=== PATIENT | female | born 1965 | race Caucasian/White ===

== ENCOUNTER → 2016-11-04 | Outpatient (CLI) | payer BC ==
--- NOTE | 2016-11-04 08:02 | MR ---
EXAMINATION TYPE: MR shoulder LT wo con DATE OF EXAM: 11/04/2016 COMPARISON: Outside radiographs 10/27/2016 HISTORY: 51-year-old female with left shoulder pain TECHNIQUE: Multiplanar, multisequence imaging of the left shoulder is performed without contrast. FINDINGS: The intracapsular portion of the long head biceps tendon shows intermediate signal suggesting tendino sis. Mild heterogeneity of the subscapularis tendon which remains intact. Mild degenerative capsular hypertrophy at the clavicular joint. Both supraspinatus and infraspinatus tendons are intact though there is a 7 x 9 mm hypointense ovoid focus centered within the anterior supraspinatus tendon fibers just bulging into the overlying subdel toid bursa. There is mild heterogeneous signal of the supraspinatus tendon and thickening of the over lying bursa with trace fluid. No atrophy of the rotator cuff musculature. Evaluation of the glenohumeral joint shows physiologic joint fluid. Some linear signal undercutting t he labral chondral junction behind the biceps anchor is suspected to represent a sublabral recess rat her than labral tear. No para labral cyst. No Hill-Sachs deformity or os acromiale. No suspicious bone marrow replacement. IMPRESSION: 1. 9 mm calcification at the anterior supraspinatus tendon suggests calcific tendinitis. Correlate wi th appropriate patient history. There is mild surrounding inflammation and secondary mild bursitis. 2. No rotator cuff tendon tear. 3. Intracapsular long head biceps tendinosis.
== END | disposition home or self-care (01) ==
LOC: RADMRIMAIN 06:05
PROVIDERS: ATTEND Orthopaedic Surgery
DX: M75.52 Bursitis of left shoulder (principal); M75.22 Bicipital tendinitis, left shoulder; M62.89 Other specified disorders of muscle

== ENCOUNTER → 2017-01-17 | Outpatient (CLI) | payer BC ==
--- NOTE | 2017-01-18 08:51 | XR ---
EXAM TYPE: LUMBAR SPINE X RAY SERIES COMPARISON: NONE HISTORY: Lower back pain TECHNIQUE: 4 views are submitted. FINDINGS: Alignment is anatomic. The pedicles are intact. The transverse processes are intact. There is no s pondylolysis or spondylolisthesis. IMPRESSION: 1. No acute process. If symptoms persist consider MRI.
== END | disposition home or self-care (01) ==
LOC: RADXRYALE 15:05
PROVIDERS: ATTEND Internal Medicine
DX: M54.32 Sciatica, left side (principal)
CPT/HCPCS: 72110

== ENCOUNTER → 2017-05-25 | Outpatient (CLI) | payer BC ==
--- NOTE | 2017-05-25 12:23 | EST ---
EXERCISE STRESS DATE OF SERVICE: 05/25/2017 AGE: 51 SEX: Female HT: WT: 106 PROTOCOL: Lenin STAGE: II DURATION OF EXERCISE: 8 minutes HEART RATE REST: 81 BLOOD PRESSURE REST: 182/93 MAXIMUM HEART RATE ACHIEVED: 145 MAXIMUM BLOOD PRESSURE: 215/64 85% MPHR: 145 100% MPHR: 170 METS: 9.7 INDICATIONS: Chest pain. CLINICAL INFORMATION: Patient referred by Dr. Carlson for a stress test history for history of chest pain. Baseline heart rate 81 beats per minute. Baseline blood pressure 182/93 mmHg. Baseline 12-lead ECG shows normal sinus rhythm with normal cardiac intervals. Patient exercised on a Lenin protocol for 8 minutes achieving a peak heart rate of 145 beats per minute, hypertensive response to exercise. There was no obvious ECG evidence for ischemia. No arrhythmias were noted. IMPRESSION: Average exercise capacity. No ECG evidence for ischemia or arrhythmia. Baseline hypertension with hypertensive response to exercise. MMODL / IJN: [id number] /
--- NOTE | 2017-05-26 11:36 | ECHOF ---
Referral Reason:R07.89 Chest Tightness or Pressure MEASUREMENTS -------- HEIGHT: 165.1 cm WEIGHT: 45.4 kg BP: 190/92 RVIDd: 2.1 cm (< 3.3) IVSd: 0.8 cm (0.6 - 1.1) LVIDd: 3.8 cm (3.9 - 5.3) LVPWd: 0.9 cm (0.6 - 1.1) IVSs: 1.2 cm LVIDs: 2.6 cm LVPWs: 1.3 cm LAESV Index (A-L): 23.08 ml/m Ao Diam: 2.3 cm (2.0 - 3.7) AV Cusp: 1.7 cm (1.5 - 2.6) LA Diam: 2.3 cm (2.7 - 3.8) EPSS: 0.5 cm MV E Skyler: 0.90 m/s MV DecT: 278 ms MV A Skyler: 0.72 m/s MV E/A Ratio: 1.25 RAP: 5.00 mmHg RVSP: 13.88 mmHg MV EF SLOPE: 134.43 mm/s (70 - 150) MV EXCURSION: 1.87 cm (> 18.000) FINDINGS -------- Sinus rhythm. This was a technically good study. The left ventricular size is normal. Left ventricular wall thickness is normal. Overall left vent ricular systolic function is normal with, an EF between 55 - 60 %. The right ventricle is normal in size and function. Normal LA size by volume 22+/-6 ml/m2. The right atrium is normal in size. Aortic valve is trileaflet and is mildly thickened. Trace amount of aortic regurgitation. There is no evidence of aortic stenosis. The mitral valve leaflets are mildly thickened. There is trace to mild mitral regurgitation. Trace tricuspid regurgitation present. Right ventricular systolic pressure is normal at < 35 mmHg. There is no evidence of pulmonary hypertension. The pulmonic valve was not well visualized. The aortic root size is normal. Normal inferior vena cava with normal inspiratory collapse consistent with estimated right atrial pre ssure of 5 mmHg. There is no pericardial effusion. CONCLUSIONS -------- 1. Sinus rhythm. 2. This was a technically good study. 3. The left ventricular size is normal. 4. Left ventricular wall thickness is normal. 5. Overall left ventricular systolic function is normal with, an EF between 55 - 60 %. 6. Normal LA size by volume 22+/-6 ml/m2. 7. Aortic valve is trileaflet and is mildly thickened. 8. Trace amount of aortic regurgitation. 9. The mitral valve leaflets are mildly thickened. 10. There is trace to mild mitral regurgitation. 11. Trace tricuspid regurgitation present. 12. Right ventricular systolic pressure is normal at < 35 mmHg. 13. There is no evidence of pulmonary hypertension. 14. The pulmonic valve was not well visualized. 15. The aortic root size is normal. 16. There is no pericardial effusion. POCKET SETTER LOCKSTITCH: Vinay Lozada RDCS
== END | disposition home or self-care (01) ==
LOC: RADNMMAIN 10:52
PROVIDERS: ATTEND Internal Medicine
DX: I35.8 Other nonrheumatic aortic valve disorders (principal)
CPT/HCPCS: 93017; 93306

== ENCOUNTER → 2019-03-21 | Outpatient (CLI) | payer BC ==
--- NOTE | 2019-03-21 14:37 | XR ---
EXAMINATION TYPE: XR chest 2V DATE OF EXAM: 03/21/2019 COMPARISON: Prior chest x-ray 08/14/[address] 11/24/2012 HISTORY: Bronchospasm, cough and congestion TECHNIQUE: Frontal and lateral views of the chest are obtained. FINDINGS: There are prominent lung volumes with flattening the hemidiaphragms consistent with underly ing COPD. There is increased retrosternal airspace. There is no focal air space opacity, pleural effu linh, or pneumothorax seen. The cardiac silhouette size is small. Aorta is dense. Biapical pleural thickening is stable. The osseous structures are intact. IMPRESSION: No acute cardiopulmonary process.
== END | disposition home or self-care (01) ==
LOC: RADXRYALE 10:43
PROVIDERS: ATTEND Internal Medicine
DX: J98.01 Acute bronchospasm (principal)
CPT/HCPCS: 71046

== ENCOUNTER → 2019-10-19 | Outpatient (CLI) | payer BC ==
--- NOTE | 2019-10-19 15:33 | XR ---
EXAMINATION TYPE: XR chest 2V DATE OF EXAM: 10/19/2019 CLINICAL HISTORY: Bronchitis. Cough with shortness of breath. Smoker. TECHNIQUE: Frontal and lateral views of the chest are obtained. COMPARISON: 03/21/2019 chest radiograph FINDINGS: The lungs are hyperexpanded. The cardiomediastinal silhouette is within normal limits for size. Pulmonary vasculature is normal. Apical pleural thickening redemonstrated. There is no focal ai r space opacity, pleural effusion, or pneumothorax seen. The osseous structures are intact. IMPRESSION: No acute cardiopulmonary process.
== END | disposition home or self-care (01) ==
LOC: RADXRYALE 13:08
PROVIDERS: ATTEND Internal Medicine
DX: J20.9 Acute bronchitis, unspecified (principal)
CPT/HCPCS: 71046

== ENCOUNTER 2019-11-04 08:48 | Observation (INO) | payer BC ==
[2019-11-04] MEDS ORDERED: LORazepam 2 MG/ML INJ IV STA (09:08)
[2019-11-04] MEDS ORDERED: SODIUM CHLORIDE 0.9% 500 ML 500 ML IV STA (09:08)
--- NOTE | 2019-11-04 09:12 | ED ---
General Adult HPI - General Chief complaint: Chest Pain Stated complaint: Rib & back pain Time Seen by Provider: 11/04/19 08:50 Source: patient, RN notes reviewed, old records reviewed Mode of arrival: ambulatory Limitations: no limitations - History of Present Illness Initial comments: This a 54-year-old female who presents emergency Department complaining of left- sided rib pain over the last 5 days. Patient states it's intermittent and nothing she seems to do makes it better or makes it go away. Patient states he just incident seems to be getting progressively worse. Patient states she's also had a 12 pound weight loss the last couple of months. Patient states she seen her primary medical care doctor and she has suggested that she get a CAT scan of her chest. Patient denies any fever chills or cough per patient denies any shortness of breath. She states when the pain is there is very difficult to take a deep breath but she is not short of breath. Patient states she continues to smoke but is trying to quit. Patient is very anxious because she is worried about the pain in all of her smoking history. Patient denies any diaphoretic episodes. Patient has any abdominal pain patient denies nausea vomiting diarrhea. - Related Data Home Medications Medication Instructions Recorded Confirmed Levothyroxine Sodium [Synthroid] 50 mcg PO DAILY 11/04/19 11/04/19 Allergies Allergy/AdvReac Type Severity Reaction Status Date / Time No Known Allergies Allergy Verified 11/04/19 10:41 Review of Systems ROS Statement: Those systems with pertinent positive or pertinent negative responses have been documented in the HPI. ROS Other: All systems not noted in ROS Statement are negative. Past Medical History Past Medical History: Hypertension, Thyroid Disorder History of Any Multi-Drug Resistant Organisms: None Reported Past Surgical History: Tubal Ligation Past Psychological History: No Psychological Hx Reported Smoking Status: Current every day smoker Past Alcohol Use History: Daily Past Drug Use History: Marijuana General Exam - General Exam Comments Initial Comments: GENERAL: Patient is well-developed and well-nourished. Patient is nontoxic and well- hydrated and is in mild distress. ENT: Neck is soft and supple. No significant lymphadenopathy is noted. Oropharynx is clear. Moist mucous membranes. Neck has full range of motion without eliciting any pain. EYES: The sclera were anicteric and conjunctiva were pink and moist. Extraocular movements were intact and pupils were equal round and reactive to light. Eyelids were unremarkable. PULMONARY: Unlabored respirations. Good breath sounds bilaterally. No audible rales rhonchi or wheezing was noted. CARDIOVASCULAR: There is a regular rate and rhythm without any murmurs gallops or rubs. Pain in the ribs is not reproducible with palpation or with movement of the patient or her taking a deep breath. ABDOMEN: Soft and nontender with normal bowel sounds. SKIN: Skin is clear with no lesions or rashes and otherwise unremarkable. NEUROLOGIC: Patient is alert and oriented x3. Cranial nerves II through XII are grossly intact. Motor and sensory are also intact. Normal speech, volume and content. Symmetrical smile. MUSCULOSKELETAL: Normal extremities with adequate strength and full range of motion. No lower extremity swelling or edema. No calf tenderness. LYMPHATICS: No significant lymphadenopathy is noted PSYCHIATRIC: Normal psychiatric evaluation. Limitations: no limitations Course Vital Signs 11/04/19 11/04/19 11/04/19 08:50 09:30 11:00 Temperature 98.1 F Pulse Rate 114 H 85 76 Respiratory 18 20 19 Rate Blood Pressure 186/103 144/96 100/66 O2 Sat by Pulse 98 98 95 Oximetry Medical Decision Making - Medical Decision Making EKG shows normal sinus rhythm at 90 bpm MA interval 236 QRS is under 6 QT interval 366 QTC is 447. Patient's EKG shows no ST segment elevation or depression. Patient had a computed tomography scan it showed pneumonia in the left lower lung and a right apical mass possible cancer. Prior to this there was no known site of infection. I started the patient on Rocephin 2 blood cultures and lactic acid. - Lab Data Result diagrams: 11/04/19 09:10 11/04/19 09:10 Lab Results 11/04/19 11/04/19 11/04/19 Range/Units 09:10 09:10 09:10 WBC 8.2 (3.8-10.6) k/uL RBC 4.48 (3.80-5.40) m/uL Hgb 14.0 (11.4-16.0) gm/dL Hct 42.4 (34.0-46.0) % MCV 94.6 (80.0-100.0) fL MCH 31.2 (25.0-35.0) pg MCHC 33.0 (31.0-37.0) g/dL RDW 12.4 (11.5-15.5) % Plt Count 391 (150-450) k/uL Neutrophils % 76 % Lymphocytes % 13 % Monocytes % 7 % Eosinophils % 2 % Basophils % 1 % Neutrophils # 6.3 (1.3-7.7) k/uL Lymphocytes # 1.0 (1.0-4.8) k/uL Monocytes # 0.6 (0-1.0) k/uL Eosinophils # 0.2 (0-0.7) k/uL Basophils # 0.1 (0-0.2) k/uL PT 9.3 (9.0-12.0) sec INR 0.9 (<1.2) APTT 23.2 (22.0-30.0) sec D-Dimer 0.66 H (<0.60) mg/L FEU Sodium 137 (137-145) mmol/L Potassium 3.8 (3.5-5.1) mmol/L Chloride 104 (98-107) mmol/L Carbon Dioxide 24 (22-30) mmol/L Anion Gap 9 mmol/L BUN 10 (7-17) mg/dL Creatinine 0.47 L (0.52-1.04) mg/dL Est GFR (CKD-EPI)AfAm >90 (>60 ml/min/1.73 sqM) Est GFR (CKD-EPI)NonAf >90 (>60 ml/min/1.73 sqM) Glucose 117 H (74-99) mg/dL Calcium 9.7 (8.4-10.2) mg/dL Magnesium 1.9 (1.6-2.3) mg/dL Total Bilirubin 0.9 (0.2-1.3) mg/dL AST 21 (14-36) U/L ALT 16 (4-34) U/L Alkaline Phosphatase 90 (38-126) U/L Troponin I (0.000-0.034) ng/mL Total Protein 7.1 (6.3-8.2) g/dL Albumin 4.1 (3.5-5.0) g/dL 11/04/19 Range/Units 09:10 WBC (3.8-10.6) k/uL RBC (3.80-5.40) m/uL Hgb (11.4-16.0) gm/dL Hct (34.0-46.0) % MCV (80.0-100.0) fL MCH (25.0-35.0) pg MCHC (31.0-37.0) g/dL RDW (11.5-15.5) % Plt Count (150-450) k/uL Neutrophils % % Lymphocytes % % Monocytes % % Eosinophils % % Basophils % % Neutrophils # (1.3-7.7) k/uL Lymphocytes # (1.0-4.8) k/uL Monocytes # (0-1.0) k/uL Eosinophils # (0-0.7) k/uL Basophils # (0-0.2) k/uL PT (9.0-12.0) sec INR (<1.2) APTT (22.0-30.0) sec D-Dimer (<0.60) mg/L FEU Sodium (137-145) mmol/L Potassium (3.5-5.1) mmol/L Chloride (98-107) mmol/L Carbon Dioxide (22-30) mmol/L Anion Gap mmol/L BUN (7-17) mg/dL Creatinine (0.52-1.04) mg/dL Est GFR (CKD-EPI)AfAm (>60 ml/min/1.73 sqM) Est GFR (CKD-EPI)NonAf (>60 ml/min/1.73 sqM) Glucose (74-99) mg/dL Calcium (8.4-10.2) mg/dL Magnesium (1.6-2.3) mg/dL Total Bilirubin (0.2-1.3) mg/dL AST (14-36) U/L ALT (4-34) U/L Alkaline Phosphatase (38-126) U/L Troponin I <0.012 (0.000-0.034) ng/mL Total Protein (6.3-8.2) g/dL Albumin (3.5-5.0) g/dL Disposition Clinical Impression: Pneumonia, Lung mass Disposition: ADMITTED IP TO THIS HOSP Referrals: Evelyn Carlson MD [Primary Care Provider] - 1-2 days Time of Disposition: 11:15
[2019-11-04 09:24] LABS: Basophils # (A) 0.1 k/uL (0-0.2); Basophils % (A) 1 %; Eosinophils # (A) 0.2 k/uL (0-0.7); Eosinophils % (A) 2 %; HCT 42.4 % (34.0-46.0); Lymphocytes % (A) 13 %; MCH 31.2 pg (25.0-35.0); MCV 94.6 fL (80.0-100.0); Monocytes # (A) 0.6 k/uL (0-1.0); Monocytes % (A) 7 %; Neutrophils # (A) 6.3 k/uL (1.3-7.7); Neutrophils % (A) 76 %; Platelet Count 391 k/uL (150-450); RBC 4.48 m/uL (3.80-5.40); RDW 12.4 % (11.5-15.5); WBC 8.2 k/uL (3.8-10.6)
[2019-11-04 09:37] LABS: INR 0.9 (<1.2); Partial Thromboplastin Time 23.2 sec (22.0-30.0); Prothrombin Time 9.3 sec (9.0-12.0)
[2019-11-04 09:39] LABS: ALT 16 U/L (4-34); AST 21 U/L (14-36); African American GFR (CKD) >90 (>60 ml/min/1.73 sqM); Albumin 4.1 g/dL (3.5-5.0); Alkaline Phosphatase 90 U/L (38-126); Anion Gap 9 mmol/L; Blood Urea Nitrogen 10 mg/dL (7-17); Calcium 9.7 mg/dL (8.4-10.2); Carbon Dioxide 24 mmol/L (22-30); Chloride 104 mmol/L (98-107); Glucose 117 mg/dL (74-99); Magnesium 1.9 mg/dL (1.6-2.3); Non-African American GFR(CKD) >90 (>60 ml/min/1.73 sqM); Potassium 3.8 mmol/L (3.5-5.1); Sodium 137 mmol/L (137-145); Total Bilirubin 0.9 mg/dL (0.2-1.3); Total Protein 7.1 g/dL (6.3-8.2)
[2019-11-04 09:40] LABS: D-Dimer 0.66 mg/L FEU (<0.60)
[2019-11-04] MEDS ORDERED: KETOROLAC 15 MG/ML 1 ML VIAL IVP STA (09:47)
--- NOTE | 2019-11-04 11:11 | CT ---
EXAMINATION TYPE: CT chest angio for PE DATE OF EXAM: 11/04/2019 COMPARISON: 11/24/2012 HISTORY: left side rib pain CT DLP: 329.9 mGycm Automated exposure control for dose reduction was used. CONTRAST: CT Chest for pulmonary embolism performed with with IV Contrast, patient injected with 100 mL of Isov ue 370. FINDINGS: LUNGS: Biapical pleural thickening. There is left lower lobe infiltrate correlate for pneumonia. No p leural effusion. No pneumothorax. MEDIASTINUM: There is satisfactory enhancement of the pulmonary artery and its branches, there is no CT evidence for pulmonary embolism. There are no greater than 1 cm hilar or mediastinal lymph nodes. No pericardial effusion is seen. OTHER: Stable bilateral adrenal gland thickening greater on the left correlate for hyperplasia.. IMPRESSION: 1. Left lower lobe pneumonia. 2. No diagnostic evidence of pulmonary embolism. 3. Right apical pleural thickening is progressed from the prior exam and could be correlated with a short-term follow-up PET scan. There is a somewhat nodular morphology.
[2019-11-04] MEDS ORDERED: cefTRIAXone IN SWFI 1,000 MG/10 ML SYRINGE IVP STA ×2 (11:14→11:18)
[2019-11-04] MEDS ORDERED: PNEUMONIA PROTOCOL UTILIZED 1 EACH MISC PO PRN (11:16)
[2019-11-04] MEDS ORDERED: AZITHROMYCIN 500 MG in SODIUM CHLORIDE 0.9% 250 ML IVPB STA (11:16)
--- NOTE | 2019-11-04 12:08 | P.CNPUL ---
History of Present Illness Consult date: 11/04/19 Reason for consult: pneumonia History of present illness: 54-year-old female patient came into the MRSA problem because of left-sided chest pain a over the past few days. Her pain was progressively getting worse and she is also getting more short of breath. Her pain was intermittent. She has lost around 12 pounds due to diminished appetite. She denies having any fever or chills. She denies having any worsening her cough. Denies having any worsening shortness of breath. She is known to have COPD. She has chronic biapical scarring based on that previous CAT scan of the chest that was done 2012. The patient is a smoker. She is quite anxious. No hemoptysis. Denies any nausea vomiting diarrhea or abdominal pain. She has hypothyroidism and she is maintained on Synthroid. Her white cell count is currently at 8.2. D-dimer was 0.66. Renal function stable with a creatinine of 0.7. Troponins were negative. CAT scan of the chest was done and it showed a left lower lobe pneumonia. There was also right apical pleural thickening that had progressed since 2012. This is slow progression. Probably a scar although the possibility of malignancy being low but cannot be completely excluded. She is currently on a combination of Rocephin and Zithromax. She is currently on room in oxygen and her pulse ox is 95%. No significant tachycardia. She is afebrile.. The patient smokes marijuana on a daily basis. The patient also drinks 3 beers a day. 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 Review of Systems Constitutional: Reports as per HPI, Reports fatigue, Reports weight loss, Denies chills, Denies fever Eyes: denies as per HPI, denies blurred vision, denies bulging eye, denies decreased vision, denies diplopia, denies discharge, denies dry eye, denies irri tation, denies itching, denies pain, denies photophobia, denies loss of peripheral vision, denies loss of vision, denies tunnel vision/blind spots Ears: deny: decreased hearing, ear discharge, earache, tinnitus Ears, nose, mouth and throat: Denies headache, Denies sore throat Breasts: absent: as per HPI, change in shape, gynecomastia, masses, nipple discharge, pain, skin changes, swelling Cardiovascular: Reports chest pain, Reports decreased exercise tolerance Respiratory: Reports as per HPI Gastrointestinal: Reports as per HPI Genitourinary: Reports as per HPI Menstruation: Reports as per HPI Musculoskeletal: Reports as per HPI Musculoskeletal: absent: ankle pain, ankle stiffness, ankle swelling, as per HPI, elbow pain, elbow stiffness, elbow swelling, foot pain, foot stiffness, foot swelling, hand pain, hand stiffness, hand swelling, hip pain, hip stiffness, hip swelling, knee pain, knee stiffness, knee swelling, shoulder pain, shoulder stiffness, shoulder swelling, wrist pain, wrist stiffness, wrist swelling Integumentary: Reports as per HPI Neurological: Reports as per HPI Psychiatric: Reports as per HPI Endocrine: Reports as per HPI Hematologic/Lymphatic: Reports as per HPI Allergic/Immunologic: Reports as per HPI Past Medical History Past Medical History: COPD, Hypertension, Thyroid Disorder History of Any Multi-Drug Resistant Organisms: None Reported Past Surgical History: Tubal Ligation Past Psychological History: No Psychological Hx Reported Smoking Status: Current every day smoker Past Alcohol Use History: Daily Past Drug Use History: Marijuana Medications and Allergies Home Medications Medication Instructions Recorded Confirmed Type Levothyroxine Sodium [Synthroid] 50 mcg PO DAILY 11/04/19 11/04/19 History Allergies Allergy/AdvReac Type Severity Reaction Status Date / Time No Known Allergies Allergy Verified 11/04/19 10:41 Physical Exam Vitals: Vital Signs Temp Pulse Resp BP Pulse Ox 11/04/19 11:00 76 19 100/66 95 11/04/19 09:30 85 20 144/96 98 11/04/19 08:50 98.1 F 114 H 18 186/103 98 Intake and Output 11/03/19 11/04/19 11/04/19 22:59 06:59 14:59 Other: Weight 44.452 kg The patient appeared well nourished and normally developed. Vital signs as documented. Head exam is unremarkable. No scleral icterus or corneal arcus noted. Neck is without jugular venous distension, thyromegaly, or carotid bruits. Carotid upstrokes are brisk bilaterally. Lungs are clear to auscultation and percussion. Cardiac exam reveals the PMI to be normally sized and situated. Rhythm is regular. First and second heart sounds normal. No murmurs, rubs or gallops. Abdominal exam reveals normal bowel sounds, no masses, no organomegaly and no aortic enlargement. Extremities are nonedematous and both femoral and pedal pulses are normal.Examination of the skin revealed no evidence of significant rashes, suspicious appearing nevi or other concerning lesions.Neurologically, the patient is awake and alert and the patient does not have any focal neurological deficit. Cranial nerves are essentially intact. Results - Laboratory Findings CBC and BMP: 11/04/19 09:10 11/04/19 09:10 PT/INR, D-dimer PT 9.3 sec (9.0-12.0) 11/04/19 09:10 INR 0.9 (<1.2) 11/04/19 09:10 D-Dimer 0.66 mg/L FEU (<0.60) H 11/04/19 09:10 Abnormal lab findings: Abnormal Labs 11/04/19 11/04/19 09:10 09:10 D-Dimer 0.66 H Creatinine 0.47 L Glucose 117 H - Diagnostic Findings Chest x-ray: image reviewed CT scan - chest: image reviewed Assessment and Plan Plan: 1 acute left lower lobe pneumonia with secondary chest wall pain 2 COPD 3 chronic biapical scarring with some interval progression since 2012. Most likely a progression of a scar. Malignancy is felt to be less likely 4 chronic smoker 5 hypothyroidism 6 hypertension 7 marijuana smoking Plan Agree on Rocephin and Zithromax Sputum Gram stain and culture Blood cultures Pain control with Tylenol and no cough needed Outpatient follow-up regarding the biapical scar/opacities as mentioned, malignancy is felt to be less likely Smoking cessation counseling Resume Synthroid No significant oxygen desaturation. Hemodynamically stable. We'll continue to follow.
[2019-11-04] MEDS: HYDROcodone/APAP 5-325MG 1 EACH TAB PO PRN ×2 (13:23→22:18)
--- NOTE | 2019-11-04 13:38 | P.HPIM ---
History of Present Illness H&P Date: 11/04/19 Chief Complaint: Left sided chest wall pain Ms. Marcano is a 54-year-old female with a past medical history of COPD, hypertension, thyroid disorder coming in with a chief complaint of left-sided chest pain that has been going on for the past 3-4 days. Patient states that sh e started to notice left-sided chest pain that started 3 days back and was progressively getting worse and along with that she was having cough and difficulty in breathing. Patient also states that over the past 6 months she lost around 10 pounds of weight which was unintentional. Patient states the cough is mostly dry nonproductive. She had an episode of fever with 99.7 recorded at home. Patient is a lifelong smoker and currently is actively smoking. Patient denies having any abdominal pain nausea vomiting or diarrhea. She denies having any palpitations, syncopal episode or lower extremity swelling. No orthopnea or PND. Patient denies having any dysuria or hematuria. She denies having any headaches blurring of vision or neck pain. Patient denies having any recent infections or antibiotic use. In the ER patient had labs done showing an elevated d-dimer of 0.66, so CT angiogram of the chest was obtained which was showing left lower lobe pneumonia, no evidence of PE, right apical pleural the coming progressed from the prior exam and couldn't be correlated with a short-term follow-up PET scan, there is a somewhat nodular morphology. On reviewing her labs her WBC count was 8.2, hemoglobin 14, platelets 391. Sodium of 131 but #3.8, chloride 104, bicarb 24, BUN 10, creatinine 0.47. Patient had troponin less than 0.012. Albumin is 4.1. Lactic acid is less than 0.5. Patient was started on ceftriaxone and Zithromax and admitted for further management. Review of Systems REVIEW OF SYSTEMS: PSYCH: No anxiety or depression NEURO:No c/o weakness of the extremties, No facial droop, No speech abnormalities. VASCULAR: Peripheral nervous system within the normal limits no edema HEMATOLOGIC: No history of easy bleeding and bruising . No recent infections . RESPIRATORY: As per HPI IMMUNE: No infections INTEGUMENT: no rashes OPHTHALMOLOGIC: No blurry vision and no eye discharge : No dysuria or hematuria CARDIAC: No chest pain , shortness of breath , paroxysmal nocturnal dyspnea MUSCULOSKELETAL : No Aches or pains in the joints or muscles. GI: No abdominal pain, Nausea or vomiting. No constipation or diarrhea. Past Medical History Past Medical History: COPD, Hypertension, Thyroid Disorder History of Any Multi-Drug Resistant Organisms: None Reported Past Surgical History: Tubal Ligation Past Psychological History: No Psychological Hx Reported Smoking Status: Current every day smoker Past Alcohol Use History: Daily Past Drug Use History: Marijuana Medications and Allergies Home Medications Medication Instructions Recorded Confirmed Type Levothyroxine Sodium [Synthroid] 50 mcg PO DAILY 11/04/19 11/04/19 History amLODIPine [Norvasc] 5 mg PO DAILY 11/04/19 11/04/19 History Allergies Allergy/AdvReac Type Severity Reaction Status Date / Time No Known Allergies Allergy Verified 11/04/19 10:41 Physical Exam Vitals: Vital Signs Temp Pulse Pulse Resp BP BP Pulse Ox 11/04/19 12:15 98.1 F 76 19 120/83 95 11/04/19 11:28 97.7 F 73 14 121/78 99 11/04/19 11:00 76 19 100/66 95 11/04/19 09:30 85 20 144/96 98 11/04/19 08:50 98.1 F 114 H 18 186/103 98 Intake and Output 11/03/19 11/04/19 11/04/19 22:59 06:59 14:59 Other: Weight 44.452 kg PHYSICAL EXAM GEN. APPEARANCE: alert, in no apparent distress, tearful , cachectic HEAD EXAM: atraumatic, normocephalic, normal inspection EYE EXAM: normal appearance, PERRL, EOMI. Absent: scleral icterus, conjunctival injection, periorbital swelling ENT EXAM: normal exam, mucous membranes moist NECK EXAM: normal inspection. Absent: tenderness, meningismus, full ROM, lymphadenopathy RESPIRATORY EXAM: Bilateral breath sounds are positive. Pleuritic chest pain on the left side. No wheeze or crackles CARDIOVASCULAR EXAM: S1 and S2 heard. No additional sounds. GI/ABDOMINAL EXAM: Abdomen is soft nontender no organomegaly. Bowel sounds are positive. EXTREMITIES EXAM: No pedal edema. Peripheral pulses felt. NEUROLOGICAL EXAM: alert, oriented X3, no focal neurological deficits. PSYCHIATRIC EXAM: Patient is tearful. Not depressed. Worried about her health. SKIN EXAM: warm, dry, intact, normal color. Absent: rash Results CBC & Chem 7: 11/04/19 09:10 11/04/19 09:10 Labs: Abnormal Lab Results - Last 24 Hours (Table) 11/04/19 11/04/19 11/04/19 Range/Units 09:10 09:10 12:07 D-Dimer 0.66 H (<0.60) mg/L FEU Creatinine 0.47 L (0.52-1.04) mg/dL Glucose 117 H (74-99) mg/dL Plasma Lactic Acid Yves <0.5 L (0.7-2.0) mmol/L Thrombosis Risk Factor Assmnt - Choose All That Apply Each Factor Represents 1 point: Age 41-60 years Thrombosis Risk Factor Assessment Total Risk Factor Score: 1 Thrombosis Risk Factor Assessment Level: Low Risk Assessment and Plan Assessment: ASSESSMENT Left lower lobe pneumonia Pleuritic chest pain Hypothyroidism Nicotine dependence Hypertension 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 Patient will be started on her home medications. Pulmonary on board , Dr. Peters following the patient. Further recommendations to follow depending on the progress of the patient.
[2019-11-04] MEDS: LEVOTHYROXINE 50 MCG TAB PO SCH (13:41)
[2019-11-04] MEDS: amLODIPine 5 MG TAB PO SCH (13:41)
[2019-11-05] MEDS: amLODIPine 5 MG TAB PO SCH (07:52)
[2019-11-05] MEDS: LEVOTHYROXINE 50 MCG TAB PO SCH (07:52)
--- NOTE | 2019-11-05 08:51 | P.PN ---
Subjective Progress Note Date: 11/05/19 54-year-old female patient came into the MRSA problem because of left-sided chest pain a over the past few days. Her pain was progressively getting worse and she is also getting more short of breath. Her pain was intermittent. She has lost around 12 pounds due to diminished appetite. She denies having any fever or chills. She denies having any worsening her cough. Denies having any worsening shortness of breath. She is known to have COPD. She has chronic biapical scarring based on that previous CAT scan of the chest that was done 2012. The patient is a smoker. She is quite anxious. No hemoptysis. Denies any nausea vomiting diarrhea or abdominal pain. She has hypothyroidism and she is maintained on Synthroid. Her white cell count is currently at 8.2. D-dimer was 0.66. Renal function stable with a creatinine of 0.7. Troponins were negative. CAT scan of the chest was done and it showed a left lower lobe pneumonia. There was also right apical pleural thickening that had progressed since 2012. This is slow progression. Probably a scar although the possibility of malignancy being low but cannot be completely excluded. She is currently on a combination of Rocephin and Zithromax. She is currently on room in oxygen and her pulse ox is 95%. No significant tachycardia. She is afebrile.. The patient smokes marijuana on a daily basis. The patient also drinks 3 beers a day. 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 Plan 2019 and seeing the patient for a follow-up. The patient's was started on IV antibiotics with a combination of Rocephin and Zithromax regarding a lobar pneumonia. She has also biapical scarring. The patient has remained afebrile throughout the night. He is on room air oxygen. She still having soreness in her chest area. No hemoptysis. The pain is somewhat pleuritic with worsening of the pain with deep breathing. Otherwise, she is now having any nausea or vomiting. She is having her regular diet and she was offered breakfast today. Objective - Vital Signs Vital signs: Vital Signs Temp 97.6 F 11/05/19 03:00 Pulse 77 11/05/19 03:00 Resp 18 11/05/19 03:00 BP 126/65 11/05/19 03:00 Pulse Ox 96 11/05/19 03:00 Intake & Output 11/04/19 11/05/19 11/05/19 18:59 06:59 18:59 Intake Total 100 Balance 100 Weight 44.452 kg Intake: Oral 100 Other: Voiding Method Toilet Toilet # Voids 2 2 - Exam The patient appeared well nourished and normally developed. Vital signs as d ocumented. Head exam is unremarkable. No scleral icterus or corneal arcus noted. Neck is without jugular venous distension, thyromegaly, or carotid bruits. Carotid upstrokes are brisk bilaterally. Lungs are clear to auscultation and percussion. Cardiac exam reveals the PMI to be normally sized and situated. Rhythm is regular. First and second heart sounds normal. No murmurs, rubs or gallops. Abdominal exam reveals normal bowel sounds, no masses, no organomegaly and no aortic enlargement. Extremities are nonedematous and both femoral and pedal pulses are normal.Examination of the skin revealed no evidence of significant rashes, suspicious appearing nevi or other concerning lesions.Neurologically, the patient is awake and alert and the patient does not have any focal neurological deficit. Cranial nerves are essentially intact. - Labs CBC & Chem 7: 11/04/19 09:10 11/04/19 09:10 Labs: Abnormal Lab Results - Last 24 Hours (Table) 11/04/19 11/04/19 11/04/19 Range/Units 09:10 09:10 12:07 D-Dimer 0.66 H (<0.60) mg/L FEU Creatinine 0.47 L (0.52-1.04) mg/dL Glucose 117 H (74-99) mg/dL Plasma Lactic Acid Yves <0.5 L (0.7-2.0) mmol/L Assessment and Plan Plan: 1 acute left lower lobe pneumonia with secondary chest wall pain, improved compared to yesterday 2 COPD 3 chronic biapical scarring with some interval progression since 2012. Most likely a progression of a scar. Malignancy is felt to be less likely 4 chronic smoker 5 hypothyroidism 6 hypertension 7 marijuana smoking Plan Agree on Rocephin and Zithromax Sputum Gram stain and culture Blood cultures The patient's pain is improving. Continue same antibiotic treatment for another 24 hours. Chest x-ray from today was reviewed and there is a left lower lobe pneumonia Smoking cessation counseling was done May potentially get discharged today on oral Levaquin to be followed up on outpatient basis especially if she feels better and the pain is under better control and she is able to take her diet and able to swallow pills without any major difficulties. We'll decide during the course of the day.
[2019-11-05] MEDS: AZITHROMYCIN 500 MG TAB PO SCH (09:19)
[2019-11-05] MEDS: HYDROcodone/APAP 5-325MG 1 EACH TAB PO PRN (09:19)
[2019-11-05 11:42] VITALS: BMI 16.2
--- NOTE | 2019-11-05 12:19 | XR ---
EXAMINATION TYPE: XR chest 2V DATE OF EXAM: 11/05/2019 CLINICAL HISTORY: Pneumonia TECHNIQUE: Frontal and lateral views of the chest are obtained. COMPARISON: 10/19/2019 chest radiograph. 11/04/2019 CTA chest FINDINGS: The lungs are hyperexpanded. The cardiomediastinal silhouette is within normal limits for size. Pulmonary vasculature is normal. Focal airspace opacity of the left lower lobe. There is no ple ural effusion or pneumothorax seen. The osseous structures are intact. IMPRESSION: Persistent left lower lobe pneumonia.
--- NOTE | 2019-11-05 13:21 | P.PN ---
Subjective Progress Note Date: 11/05/19 Principal diagnosis: CAP Ms. Marcano is a 54-year-old female with a past medical history of COPD, hypertension, thyroid disorder coming in with a chief complaint of left-sided chest pain that has been going on for the past 3-4 days. Patient states that she started to notice left-sided chest pain that started 3 days back and was progressively getting worse and along with that she was having cough and difficulty in breathing. Patient also states that over the past 6 months she lost around 10 pounds of weight which was unintentional. Patient states the cough is mostly dry nonproductive. She had an episode of fever with 99.7 recorded at home. Patient is a lifelong smoker and currently is actively smoking. Patient denies having any abdominal pain nausea vomiting or diarrhea. She denies having any palpitations, syncopal episode or lower extremity swelling. No orthopnea or PND. Patient denies having any dysuria or hematuria. She denies having any headaches blurring of vision or neck pain. Patient denies having any recent infections or antibiotic use. In the ER patient had labs done showing an elevated d-dimer of 0.66, so CT angiogram of the chest was obtained which was showing left lower lobe pneumonia, no evidence of PE, right apical pleural the coming progressed from the prior exam and couldn't be correlated with a short-term follow-up PET scan, there is a somewhat nodular morphology. On reviewing her labs her WBC count was 8.2, hemoglobin 14, platelets 391. Sodium of 131 but #3.8, chloride 104, bicarb 24, BUN 10, creatinine 0.47. Patient had troponin less than 0.012. Albumin is 4.1. Lactic acid is less than 0.5. Patient was started on ceftriaxone and Zithromax and admitted for further management. On 11/05/2019- patient is resting comfortably in bed. Appears to be no acute distress. No acute events reported melena.. Patient still complains of pain on the left side of the chest. States that the and difficulty in breathing is completely better. Patient denies having any palpitations. No fever chills or rigors. No abdominal pain nausea vomiting or diarrhea. No dysuria or hematuria. On reviewing the vitals T-max is 97.8, heart rate is around 72/m, blood pressure 126/65, saturating at 96% on room air. Active Medications Hydrocodone Bitart/Acetaminophen (Hydrocodone/Apap 5-325mg 1 Each Tab) 1 each PO Q6HR PRN PRN Reason: Pain Last Admin: 11/05/19 09:19 Dose: 1 each Documented by: Amlodipine Besylate (Amlodipine 5 Mg Tab) 5 mg PO DAILY [facility] Last Admin: 11/05/19 07:52 Dose: Not Given Documented by: Azithromycin (Azithromycin 500 Mg Tab) 500 mg PO DAILY [facility] Stop: 11/09/19 09:01 Last Admin: 11/05/19 09:19 Dose: 500 mg Documented by: Ceftriaxone Sodium 2 gm/ (Sodium Chloride) 50 mls @ 100 mls/hr IVPB Q24HR [facility] Stop: 11/07/19 09:01 Last Admin: 11/05/19 09:19 Dose: 100 mls/hr Documented by: Levothyroxine Sodium (Levothyroxine 50 Mcg Tab) 50 mcg PO 0630 [facility] Last Admin: 11/05/19 07:52 Dose: Not Given Documented by: Miscellaneous Information (Pneumonia Protocol Utilized 1 Each Misc) 1 each PO ONCE PRN PRN Reason: Per Protocol Objective - Vital Signs Vital signs: Vital Signs Temp 97.0 F L 11/05/19 09:00 Pulse 72 11/05/19 09:00 Resp 18 11/05/19 09:00 BP 135/80 11/05/19 09:00 Pulse Ox 97 11/05/19 09:00 Intake & Output 11/04/19 11/05/19 11/05/19 18:59 06:59 18:59 Intake Total 100 Balance 100 Weight 44.452 kg 44.452 kg Intake: Oral 100 Other: Voiding Method Toilet Toilet # Voids 2 2 1 - Exam PHYSICAL EXAM GEN. APPEARANCE: alert, in no apparent distress, cachectic HEENT: No pallor. No icterus. No JVD. RESPIRATORY EXAM: Bilateral breath sounds are positive. Pleuritic chest pain on the left side. No wheeze or crackles CARDIOVASCULAR EXAM: S1 and S2 heard. No additional sounds. GI/ABDOMINAL EXAM: Abdomen is soft nontender no organomegaly. Bowel sounds are positive. EXTREMITIES EXAM: No pedal edema. Peripheral pulses felt. NEUROLOGICAL EXAM: alert, oriented X3, no focal neurological deficits. PSYCHIATRIC EXAM: Not depressed. Worried about her health. SKIN EXAM: warm, dry, intact, normal color. Absent: rash - Labs CBC & Chem 7: 11/04/19 09:10 11/04/19 09:10 Assessment and Plan Assessment: ASSESSMENT Left lower lobe pneumonia Pleuritic chest pain Hypothyroidism Nicotine dependence Hypertension Cachexia with BMI is 16.3 Abnormal CAT scan of the lung PLAN: Continue with ceftriaxone and Zithromax for community acquired pneumonia. Patient will be started on her home medications. Pulmonary on board , Dr. Peters following the patient. Repeat chest x-ray from this morning done showing persistent left lower lobe pneumonia. Further recommendations to follow depending on the progress of the patient.
[2019-11-06] MEDS: LEVOTHYROXINE 50 MCG TAB PO SCH (06:34)
[2019-11-06 06:46] LABS: Basophils # (A) 0.1 k/uL (0-0.2); Basophils % (A) 1 %; Eosinophils # (A) 0.2 k/uL (0-0.7); Eosinophils % (A) 3 %; HCT 38.3 % (34.0-46.0); HGB 12.5 gm/dL (11.4-16.0); Lymphocytes # (A) 1.5 k/uL (1.0-4.8); Lymphocytes % (A) 18 %; MCH 31.7 pg (25.0-35.0); MCHC 32.7 g/dL (31.0-37.0); MCV 97.1 fL (80.0-100.0); Mean Platelet Volume 7.7; Monocytes # (A) 0.4 k/uL (0-1.0); Monocytes % (A) 6 %; Neutrophils # (A) 5.7 k/uL (1.3-7.7); Neutrophils % (A) 72 %; Platelet Count 386 k/uL (150-450); RBC 3.95 m/uL (3.80-5.40); RDW 12.4 % (11.5-15.5)
[2019-11-06 07:01] LABS: African American GFR (CKD) >90 (>60 ml/min/1.73 sqM); Anion Gap 3 mmol/L; Blood Urea Nitrogen 9 mg/dL (7-17); Calcium 9.3 mg/dL (8.4-10.2); Carbon Dioxide 29 mmol/L (22-30); Chloride 108 mmol/L (98-107); Glucose 93 mg/dL (74-99); Non-African American GFR(CKD) >90 (>60 ml/min/1.73 sqM); Potassium 4.3 mmol/L (3.5-5.1); Sodium 140 mmol/L (137-145)
[2019-11-06] MEDS: amLODIPine 5 MG TAB PO SCH (08:14)
[2019-11-06] MEDS: AZITHROMYCIN 500 MG TAB PO SCH (08:14)
[2019-11-06 08:18] VITALS: BP 150/89; PULSE 71; RESP 16; TEMP 97.8
--- NOTE | 2019-11-06 11:24 | P.PN ---
Subjective Progress Note Date: 11/06/19 54-year-old female patient came into the MRSA problem because of left-sided chest pain a over the past few days. Her pain was progressively getting worse and she is also getting more short of breath. Her pain was intermittent. She has lost around 12 pounds due to diminished appetite. She denies having any fever or chills. She denies having any worsening her cough. Denies having any worsening shortness of breath. She is known to have COPD. She has chronic biapical scarring based on that previous CAT scan of the chest that was done 2012. The patient is a smoker. She is quite anxious. No hemoptysis. Denies any nausea vomiting diarrhea or abdominal pain. She has hypothyroidism and she is maintained on Synthroid. Her white cell count is currently at 8.2. D-dimer was 0.66. Renal function stable with a creatinine of 0.7. Troponins were negative. CAT scan of the chest was done and it showed a left lower lobe pneumonia. There was also right apical pleural thickening that had progressed since 2012. This is slow progression. Probably a scar although the possibility of malignancy being low but cannot be completely excluded. She is currently on a combination of Rocephin and Zithromax. She is currently on room in oxygen and her pulse ox is 95%. No significant tachycardia. She is afebrile.. The patient smokes marijuana on a daily basis. The patient also drinks 3 beers a day. 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 11/05/2019 seeing the patient for a follow-up. The patient's was started on IV antibiotics with a combination of Rocephin and Zithromax regarding a lobar pn eumonia. She has also biapical scarring. The patient has remained afebrile throughout the night. He is on room air oxygen. She still having soreness in her chest area. No hemoptysis. The pain is somewhat pleuritic with worsening of the pain with deep breathing. Otherwise, she is now having any nausea or vomiting. She is having her regular diet and she was offered breakfast today. 11/06/2019, the patient is doing well. Still has some limited pleurisy in the left lung. No fever. No chills. She is on a combination of Rocephin and Zithromax. No other significant events otherwise. White cell count remains low at 8.0. Mean is at 9 with a creatinine of 0.5 and the rest of the electrodes are all stable. The mejia virus Covid 19 evaluation came back negative and the patient will be discharged home on a course of Levaquin. Objective - Vital Signs Vital signs: Vital Signs Temp 97.8 F 11/06/19 08:17 Pulse 71 11/06/19 08:17 Resp 16 11/06/19 08:27 BP 150/89 11/06/19 08:17 Pulse Ox 99 11/06/19 08:17 Intake & Output 11/05/19 11/06/19 11/06/19 18:59 06:59 18:59 Weight 44.452 kg Other: # Voids 1 1 - Exam The patient appeared well nourished and normally developed. Vital signs as documented. Head exam is unremarkable. No scleral icterus or corneal arcus noted. Neck is without jugular venous distension, thyromegaly, or carotid bru its. Carotid upstrokes are brisk bilaterally. Lungs are clear to auscultation and percussion. Cardiac exam reveals the PMI to be normally sized and situated. Rhythm is regular. First and second heart sounds normal. No murmurs, rubs or gallops. Abdominal exam reveals normal bowel sounds, no masses, no organomegaly and no aortic enlargement. Extremities are nonedematous and both femoral and pedal pulses are normal.Examination of the skin revealed no evidence of significant rashes, suspicious appearing nevi or other concerning lesions.Neurologically, the patient is awake and alert and the patient does not have any focal neurological deficit. Cranial nerves are essentially intact. - Labs CBC & Chem 7: 11/06/19 06:30 11/06/19 06:30 Labs: Abnormal Lab Results - Last 24 Hours (Table) 11/06/19 Range/Units 06:30 Chloride 108 H (98-107) mmol/L Microbiology - Last 24 Hours (Table) 11/04/19 12:07 Blood Culture - Preliminary Blood No Growth after 24 hours Assessment and Plan Plan: 1 acute left lower lobe pneumonia with secondary chest wall pain, improved compared to yesterday,Still being treated for left lower lobe pneumonia with a course of antibiotics including Rocephin and Zithromax. 2 COPD 3 chronic biapical scarring with some interval progression since 2012. Most likely a progression of a scar. Malignancy is felt to be less likely 4 chronic smoker 5 hypothyroidism 6 hypertension 7 marijuana smoking Plan discharged today on oral Levaquin to be followed up on outpatient basis. Smoking cessation counseling was done. Recommend Chantix for smoking cessation. Follow-up chest x-ray my office on outpatient basis in a week's time.
--- NOTE | 2019-11-06 16:55 | DS ---
DISCHARGE SUMMARY DATE OF SERVICE: 11/06/2019 FINAL DIAGNOSES: 1. Acute left lower pneumonia possibly community-acquired. 2. Possible chronic obstructive pulmonary disease. 3. Pleuritic chest pain left-sided. 4. History of continued ongoing nicotine dependence. 5. Hypothyroidism. 6. Hypertension. 7. Cachexia with severe protein calorie malnutrition with body mass index of 16.3. 8. Abnormal CT scan of the lung showing right apical pleural scarring. DISCHARGE DISPOSITION: The patient will be discharged in stable condition with guarded prognosis. Pulmonary cleared the patient. HISTORY OF PRESENT ILLNESS: This is a 54-year-old woman with a past medical history of multiple medical problems was admitted with shortness of breath, cough and chest pains as mentioned earlier. The patient followed Dr. Carlson in the outpatient setting. The patient is suspected to have pneumonia. The patient treated with empiric antibiotics. pulm saw the patient recommended outpatient followup. COVID-19 was negative. A CBC, BMP was within normal limits. On exam, vitals are stable. CARDIOVASCULAR: S1, S2. ABDOMEN: Soft. NERVOUS SYSTEM: No focal deficits. INSTRUCTIONS/MEDICATION: 1. Diet is cardiac diet. 2. Activity limited until followup. 3. Follow up with Dr. Carlson in 2-3 days. 4. Follow up with Dr. Lepe as recommended. MEDICATIONS ARE: 1. Norvasc 5 mg p.o. daily. 2. Synthroid 50 mcg p.o. daily. 3. Ceftin 500 mg daily for 3 days. 4. Chantix as before. 5. No smoking. 6. Motrin 400 mg q.6 p.r.n. 7. Tylenol p.r.n. 8. Zithromax 500 mg p.o. daily for 5 days. 9. Albuterol 2 t.i.d. p.r.n. MMODL / IJN: [id number] / MTDD
== END 2019-11-06 11:40 | disposition home or self-care (01) ==
LOC: EC 08:48 → 1SOBS 11:16
PROVIDERS: ADMIT Internal Medicine; ATTEND Internal Medicine
DX: J18.1 Lobar pneumonia, unspecified organism (principal); E03.9 Hypothyroidism, unspecified; R09.1 Pleurisy; J98.4 Other disorders of lung; F17.200 Nicotine dependence, unspecified, uncomplicated; I10 Essential (primary) hypertension; R79.89 Other specified abnormal findings of blood chemistry; R94.2 Abnormal results of pulmonary function studies; E43 Unspecified severe protein-calorie malnutrition; R64 Cachexia; Z68.1 Body mass index [BMI] 19.9 or less, adult; Z79.890 Hormone replacement therapy; Z79.899 Other long term (current) drug therapy; Z20.828 Contact with and (suspected) exposure to other viral communicable diseases
CPT/HCPCS: 96366; 96367; 96376; 96361; 96365; 96375; 99285; 36415; 93005; 85379; 80053; 80048; 83605; 83735; 84484; 85025 ×2; 85610; 85730; 87040; 71046; 71275; G0378 ×3; U0003; J2060; J0456; J0696 ×3; J1885; Q9967

== ENCOUNTER → 2022-05-25 | Outpatient (CLI) | payer BC ==
--- NOTE | 2022-05-25 13:36 | XR ---
EXAMINATION TYPE: XR chest 2V DATE OF EXAM: 05/25/2022 COMPARISON: 03/21/2019, 08/14/2015, 11/15/2012 TECHNIQUE: PA and lateral views submitted. HISTORY: Shortness of breath FINDINGS: The lungs are clear and there is no pneumothorax, pleural effusion, or focal pneumonia. Heart size normal and no overt failure. Osseous structures are intact. Hyperinflation of the lung. Bilateral nip ple shadows seen. There is biapical pleural thickening with somewhat nodular pattern in the right paramjit g apex is stable from 2019 and the x-ray of 2015 and therefore likely is benign.. IMPRESSION: 1. No acute process. 2. COPD. Biapical pleural thickening greater on the right stable dating back to 2012 and therefore lobo ace benign.
--- NOTE | 2022-05-25 13:37 | XR ---
EXAMINATION TYPE: XR cervical spine limited DATE OF EXAM: 05/25/2022 COMPARISON: NONE HISTORY: Pain TECHNIQUE: Four views are submitted. FINDINGS: The odontoid is intact. There are no compression deformities. The prevertebral soft tissue structur es are within normal limits. Mild degenerative disc disease C4-5 and C5-C6. IMPRESSION: 1. Diffuse osteopenia with mild degenerative disc disease C4-5 and C5-C6.
== END | disposition home or self-care (01) ==
LOC: RADXRYALE 13:15
PROVIDERS: ATTEND Internal Medicine
DX: Z00.01 Encounter for general adult medical examination with abnormal findings (principal); J44.9 Chronic obstructive pulmonary disease, unspecified; J94.8 Other specified pleural conditions; M50.321 Other cervical disc degeneration at C4-C5 level; M85.88 Other specified disorders of bone density and structure, other site
CPT/HCPCS: 71046; 72040

== ENCOUNTER 2022-06-08 12:20 | Emergency (ER) | payer BC ==
[2022-06-08 12:35] VITALS: BP 154/83; PULSE 71; RESP 18; TEMP 97.7
--- NOTE | 2022-06-08 12:55 | ED ---
General Adult HPI - General Chief complaint: Recheck/Abnormal Lab/Rx Stated complaint: abn ekg sent by Time Seen by Provider: 06/08/22 14:15 Source: patient Mode of arrival: ambulatory Limitations: no limitations - History of Present Illness Initial comments: 56 year old patient presents to emergency department from her primary care office. She went in there today to be evaluated for chest pain. States she has been having intermittent episodes for the past couple of weeks. Last night the pain awoke her from sleep at 3 AM. She described it as a sharp shooting sensation. Without radiation. States she took a couple deep breaths and the pain resolved. This is similar in nature to her other episodes of chest pain that she keeps having. She denies any nausea or vomiting. No history of cardiac disease. No calf pain or swelling. No recent upper infections. She has had previous stress testing which has all been normal. No other allev iating, precipitating or modifying factors - Related Data Home Medications Medication Instructions Recorded Confirmed Levothyroxine Sodium [Synthroid] 50 mcg PO DAILY 11/04/19 06/08/22 amLODIPine [Norvasc] 5 mg PO DAILY 11/04/19 06/08/22 Allergies Allergy/AdvReac Type Severity Reaction Status Date / Time No Known Allergies Allergy Verified 06/08/22 15:04 Review of Systems ROS Statement: Those systems with pertinent positive or pertinent negative responses have been documented in the HPI. ROS Other: All systems not noted in ROS Statement are negative. Past Medical History Past Medical History: COPD, Hypertension, Thyroid Disorder History of Any Multi-Drug Resistant Organisms: None Reported Past Surgical History: Tubal Ligation Past Psychological History: No Psychological Hx Reported Smoking Status: Current every day smoker Past Alcohol Use History: Daily Past Drug Use History: Marijuana General Exam Limitations: no limitations General appearance: alert, in no apparent distress Head exam: Present: atraumatic, normocephalic, normal inspection Eye exam: Present: normal appearance, PERRL, EOMI. Absent: scleral icterus, conjunctival injection, periorbital swelling ENT exam: Present: normal exam, mucous membranes moist Neck exam: Present: normal inspection. Absent: tenderness, meningismus, lymphadenopathy Respiratory exam: Present: normal lung sounds bilaterally. Absent: respiratory distress, wheezes, rales, rhonchi, stridor Cardiovascular Exam: Present: regular rate, normal rhythm, normal heart sounds. Absent: systolic murmur, diastolic murmur, rubs, gallop, clicks GI/Abdominal exam: Present: soft, normal bowel sounds. Absent: distended, tenderness, guarding, rebound, rigid Extremities exam: Present: normal inspection, full ROM, normal capillary refill. Absent: tenderness, pedal edema, joint swelling, calf tenderness Back exam: Present: normal inspection Neurological exam: Present: alert, oriented X3, CN II-XII intact Psychiatric exam: Present: normal affect, normal mood Skin exam: Present: warm, dry, intact, normal color. Absent: rash Course Vital Signs 06/08/22 12:30 Temperature 97.7 F Pulse Rate 71 Respiratory 18 Rate Blood Pressure 154/83 O2 Sat by Pulse 99 Oximetry EKG Findings - EKG Comments: EKG Findings:: EKG demonstrates sinus rhythm with a rate of 67. IL interval 167. QRS 109. QTC of 412. No acute ST segment elevations or depressions Medical Decision Making - Medical Decision Making Was pt. sent in by a medical professional or institution ([facility], [employer], urgent care, hospital, or [facility]...) When possible be specific @ -PCP office Did you speak to anyone other than the patient for history (EMS, parent, family, police, friend...)? What history was obtained from this source @ -No Did you review nursing and triage notes (agree or disagree)? Why? @ -I reviewed and agree with nursing and triage notes Were old charts reviewed (outside hosp., previous admission, EMS record, old EKG, old radiological studies, urgent care reports/EKG's, [facility] records)? Report findings @ -old charts were not reviewed Differential Diagnosis (chest pain, altered mental status, abdominal pain women, abdominal pain men, vaginal bleeding, weakness, fever, dyspnea, syncope, headache, dizziness, GI bleed, back pain, seizure, CVA, palpatations, mental health, musculoskeletal)? @ -acs, stemi, nstemi, pleurisy, costochondritis EKG interpreted by me (3pts min.). @ -yes X-rays interpreted by me (1pt min.). @ -yes CT interpreted by me (1pt min.). @ -no U/S interpreted by me (1pt. min.). @ -None done What testing was considered but not performed or refused? (CT, X-rays, U/S, labs)? Why? @ -None What meds were considered but not given or refused? Why? @ -None Did you discuss the management of the patient with other professionals (professionals i.e. , PA, [employer], lab, RT, psych nurse, long term care social worker, biomedical equipment specialist, teacher, parcel post officer, manager of case)? Give summary @ -No Was smoking cessation discussed for >3mins.? @ -No Was critical care preformed (if so, how long)? @ -No Were there social determinants of health that impacted care today? How? (Homelessness, low income, unemployed, alcoholism, drug addiction, transportation, low edu. Level, literacy, decrease access to med. care, prison, rehab)? @ -No Was there de-escalation of care discussed even if they declined (Discuss DNR or withdrawal of care, Hospice)? DNR status @ -No What co-morbidities impacted this encounter? (DM, HTN, Smoking, COPD, CAD, Cancer, CVA, ARF, Chemo, Hep., AIDS, mental health diagnosis, sleep apnea, morbid obesity)? @ -None Was patient admitted / discharged? Hospital course, mention meds given and route, prescriptions, significant lab abnormalities, going to OR and other pertinent info. @ -Upon arrival patient was placed into room 7. Thorough history and physical exam was performed. 12-lead EKG was repeated no acute abdomen ALLERGIES. IV is established and laboratory studies were conducted. Troponin is negative. Chest x-ray demonstrates no acute process. Results are discussed the patient. Remained chest pain-free. Patient will be discharged home and instructed to follow back up with her primary care doctor for further evaluation. May need stress testing. Return for any new or worsening symptoms. Patient discharged home in stable condition Undiagnosed new problem with uncertain prognosis? @ -Yes Drug Therapy requiring intensive monitoring for toxicity (Heparin, Nitro, Insulin, Cardizem)? @ -No Were any procedures done? @ -No Diagnosis/symptom? @ -acute chest pain, suspected pleurisy Acute, or Chronic, or Acute on Chronic? @ -acute Uncomplicated (without systemic symptoms) or Complicated (systemic symptoms)? @ -complicated Side effects of treatment? @ -No Exacerbation, Progression, or Severe Exacerbation? @ -No Poses a threat to life or bodily function? How? (Chest pain, [place], [place], pneumonia, PE, COPD, DKA, ARF, appy, cholecystitis, CVA, Diverticulitis, Homicidal, Suicidal, threat to staff... and all critical care pts) @ -Yes - Lab Data Result diagrams: 06/08/22 14:08 06/08/22 14:08 Lab Results 06/08/22 06/08/22 06/08/22 Range/Units 14:08 14:08 14:08 WBC 7.1 (3.8-10.6) k/uL RBC 4.63 (3.80-5.40) m/uL Hgb 14.5 (11.4-16.0) gm/dL Hct 43.0 (34.0-46.0) % MCV 92.7 (80.0-100.0) fL MCH 31.4 (25.0-35.0) pg MCHC 33.8 (31.0-37.0) g/dL RDW 12.8 (11.5-15.5) % Plt Count 294 (150-450) k/uL MPV 8.0 Neutrophils % 67 % Lymphocytes % 22 % Monocytes % 5 % Eosinophils % 4 % Basophils % 1 % Neutrophils # 4.7 (1.3-7.7) k/uL Lymphocytes # 1.6 (1.0-4.8) k/uL Monocytes # 0.3 (0-1.0) k/uL Eosinophils # 0.3 (0-0.7) k/uL Basophils # 0.1 (0-0.2) k/uL PT 10.1 (9.0-12.0) sec INR 0.9 (<1.2) APTT 23.7 (22.0-30.0) sec Sodium 140 (137-145) mmol/L Potassium 4.4 (3.5-5.1) mmol/L Chloride 109 H (98-107) mmol/L Carbon Dioxide 24 (22-30) mmol/L Anion Gap 7 mmol/L BUN 10 (7-17) mg/dL Creatinine 0.48 L (0.52-1.04) mg/dL Est GFR (CKD-EPI)AfAm >90 (>60 ml/min/1.73 sqM) Est GFR (CKD-EPI)NonAf >90 (>60 ml/min/1.73 sqM) Glucose 85 (74-99) mg/dL Calcium 9.4 (8.4-10.2) mg/dL Magnesium 2.4 H (1.6-2.3) mg/dL Total Bilirubin 0.5 (0.2-1.3) mg/dL AST 25 (14-36) U/L ALT 18 (4-34) U/L Alkaline Phosphatase 79 (38-126) U/L Troponin I (0.000-0.034) ng/mL NT-Pro-B Natriuret Pep pg/mL Total Protein 6.9 (6.3-8.2) g/dL Albumin 4.4 (3.5-5.0) g/dL Lipase 187 (23-300) U/L 06/08/22 06/08/22 Range/Units 14:08 14:08 WBC (3.8-10.6) k/uL RBC (3.80-5.40) m/uL Hgb (11.4-16.0) gm/dL Hct (34.0-46.0) % MCV (80.0-100.0) fL MCH (25.0-35.0) pg MCHC (31.0-37.0) g/dL RDW (11.5-15.5) % Plt Count (150-450) k/uL MPV Neutrophils % % Lymphocytes % % Monocytes % % Eosinophils % % Basophils % % Neutrophils # (1.3-7.7) k/uL Lymphocytes # (1.0-4.8) k/uL Monocytes # (0-1.0) k/uL Eosinophils # (0-0.7) k/uL Basophils # (0-0.2) k/uL PT (9.0-12.0) sec INR (<1.2) APTT (22.0-30.0) sec Sodium (137-145) mmol/L Potassium (3.5-5.1) mmol/L Chloride (98-107) mmol/L Carbon Dioxide (22-30) mmol/L Anion Gap mmol/L BUN (7-17) mg/dL Creatinine (0.52-1.04) mg/dL Est GFR (CKD-EPI)AfAm (>60 ml/min/1.73 sqM) Est GFR (CKD-EPI)NonAf (>60 ml/min/1.73 sqM) Glucose (74-99) mg/dL Calcium (8.4-10.2) mg/dL Magnesium (1.6-2.3) mg/dL Total Bilirubin (0.2-1.3) mg/dL AST (14-36) U/L ALT (4-34) U/L Alkaline Phosphatase (38-126) U/L Troponin I <0.012 (0.000-0.034) ng/mL NT-Pro-B Natriuret Pep 79 pg/mL Total Protein (6.3-8.2) g/dL Albumin (3.5-5.0) g/dL Lipase (23-300) U/L Disposition Clinical Impression: Chest pain Disposition: HOME SELF-CARE Condition: Stable Instructions (If sedation given, give patient instructions): Chest Pain (DC) Additional Instructions: Please follow back up with your primary care doctor. Return for any new or worsening symptoms Is patient prescribed a controlled substance at d/c from ED?: No Referrals: Evelyn Carlsno MD [Primary Care Provider] - 1-2 days Time of Disposition: 15:11
[2022-06-08 14:24] LABS: Basophils # (A) 0.1 k/uL (0-0.2); Basophils % (A) 1 %; Eosinophils # (A) 0.3 k/uL (0-0.7); Eosinophils % (A) 4 %; HGB 14.5 gm/dL (11.4-16.0); Lymphocytes # (A) 1.6 k/uL (1.0-4.8); Lymphocytes % (A) 22 %; MCH 31.4 pg (25.0-35.0); MCHC 33.8 g/dL (31.0-37.0); MCV 92.7 fL (80.0-100.0); Monocytes # (A) 0.3 k/uL (0-1.0); Monocytes % (A) 5 %; Neutrophils # (A) 4.7 k/uL (1.3-7.7); Neutrophils % (A) 67 %; Platelet Count 294 k/uL (150-450); RBC 4.63 m/uL (3.80-5.40); RDW 12.8 % (11.5-15.5); WBC 7.1 k/uL (3.8-10.6)
[2022-06-08 14:40] LABS: INR 0.9 (<1.2); Partial Thromboplastin Time 23.7 sec (22.0-30.0); Prothrombin Time 10.1 sec (9.0-12.0)
--- NOTE | 2022-06-08 14:40 | XR ---
EXAMINATION TYPE: XR chest 2V DATE OF EXAM: 06/08/2022 COMPARISON: Chest x-ray May 25, 2022 HISTORY: Chest pain. TECHNIQUE: Frontal and lateral views of the chest are obtained. FINDINGS: There is no suspicious new focal air space opacity, pleural effusion, or pneumothorax seen . The cardiac silhouette size is stable and within normal limits. The osseous structures are intac t. IMPRESSION: No acute cardiopulmonary process. No significant change from prior.
[2022-06-08 14:46] LABS: ALT 18 U/L (4-34); AST 25 U/L (14-36); African American GFR (CKD) >90 (>60 ml/min/1.73 sqM); Albumin 4.4 g/dL (3.5-5.0); Alkaline Phosphatase 79 U/L (38-126); Anion Gap 7 mmol/L; Blood Urea Nitrogen 10 mg/dL (7-17); Calcium 9.4 mg/dL (8.4-10.2); Carbon Dioxide 24 mmol/L (22-30); Chloride 109 mmol/L (98-107); Glucose 85 mg/dL (74-99); Lipase 187 U/L (23-300); Magnesium 2.4 mg/dL (1.6-2.3); Non-African American GFR(CKD) >90 (>60 ml/min/1.73 sqM); Potassium 4.4 mmol/L (3.5-5.1); Sodium 140 mmol/L (137-145); Total Bilirubin 0.5 mg/dL (0.2-1.3); Total Protein 6.9 g/dL (6.3-8.2)
== END 2022-06-08 15:22 | disposition home or self-care (01) ==
LOC: EC 12:20
DX: R07.89 Other chest pain (principal); J44.9 Chronic obstructive pulmonary disease, unspecified; I10 Essential (primary) hypertension; E07.9 Disorder of thyroid, unspecified; F17.200 Nicotine dependence, unspecified, uncomplicated; Z79.890 Hormone replacement therapy; Z79.899 Other long term (current) drug therapy
CPT/HCPCS: 36415; 71046; 80053; 83690; 83735; 83880; 84484; 85025; 85610; 85730; 93005; 99285

== ENCOUNTER → 2023-03-01 | Outpatient (CLI) | payer BC ==
--- NOTE | 2023-03-02 23:06 | MR ---
EXAMINATION TYPE: MR cervical spine wo con DATE OF EXAM: 03/01/2023 6:44 AM CLINICAL INDICATION:Female, 57 years old with history of M54.2 Cervicalgia; , Neck pain, headaches, L UE radiculopathy. COMPARISON: 02/23/2023.. TECHNIQUE: Multi planar, multi sequence imaging was performed utilizing: T1-weighted, T2-weighted, an d turbo inversion recovery imaging of the cervical spine. IV Contrast: cc (none if empty) FINDINGS: Alignment: The cervical vertebral bodies have preserved heights. Alignment is within normal limits gi abhi patient positioning. Bones: Bone signal is within normal limits. No abnormal bone marrow edema on inversion recovery seque nces. Cord: The spinal cord is unremarkable with regards to their signal intensity and morphology. Discs: Intervertebral disc signal is maintained. C2-C3: No significant disc pathology. The spinal canal is patent. No neural foraminal stenosis. C3-C4: No significant disc pathology. The spinal canal is patent. No neural foraminal stenosis. C4-C5: No significant disc pathology. The spinal canal is patent. No neural foraminal stenosis. C5-C6: No significant disc pathology. The spinal canal is patent. No neural foraminal stenosis. C6-C7: No significant disc pathology. The spinal canal is patent. Bilateral facet and uncovertebral joint arthropathy are present with mild left neural foraminal stenosis. The right neural foramen is p atent. C7-T1: No significant disc pathology. The spinal canal is patent. No neural foraminal stenosis. Other: There is a high T2 signal lesion within the left posterior base of the tongue the mucosa on th e lateral aspect measuring up to 9 x 6 mm suggested Tornwaldt cyst. IMPRESSION: 1. No evidence for disc herniation or significant spinal canal stenosis. 2. Minimal disc degeneration with associated osteoarthritic changes. No evidence for significant spin al canal or neural foraminal stenosis.
== END | disposition home or self-care (01) ==
LOC: RADMRIMAIN 05:44
PROVIDERS: ATTEND Orthopaedic Surgery
DX: M47.812 Spondylosis without myelopathy or radiculopathy, cervical region (principal); M50.30 Other cervical disc degeneration, unspecified cervical region
CPT/HCPCS: 72141